=== PATIENT | female | born 1970 | race African-American/Black ===

== ENCOUNTER 2018-05-27 14:24 | Emergency (ER) | payer BC ==
[~2018-05-27] VITALS: Ht 182.9 cm; Wt 118.0 kg
[2018-05-27] MEDS ORDERED: SODIUM CHLORIDE 0.9% 1,000 ML IV ONE (14:55)
[2018-05-27] MEDS ORDERED: ONDANSETRON HCL 4MG/2ML VIAL IV STA (14:55)
[2018-05-27 16:02] LABS: BASOPHILS % 0.5 % (0.0-2.0); EOSINOPHILS % 0.3 % (0.0-5.0); HEMATOCRIT. 39.4 % (36.0-48.0); HEMOGLOBIN. 13.2 g/dL (12.0-16.0); LYMPHOCYTES % 18.9 % (20.0-50.0); MEAN CORPUSCULAR HEMOGLOBIN 29.8 pg (28.0-32.0); MEAN CORPUSCULAR VOLUME 88.9 fL (81.0-99.0); MEAN PLATELET VOLUME 9.8 fl (7.4-10.4); MONOCYTES % 6.2 % (2.0-8.0); NEUTROPHILS % 74.1 % (40.0-76.0); PLATELET 237 x1000/uL (130-400); RED BLOOD CELL COUNT 4.43 mill/uL (4.2-5.4); RED CELL DISTRIBUTION WIDTH 14.1 % (11.6-14.6)
[2018-05-27 16:08] LABS: CHLORIDE 107 mEq/L (98-107)
[2018-05-27 16:12] LABS: ETHANOL BLOOD < 10 mg/dL
[2018-05-27 16:18] LABS: HCG SCREEN POSITIVE
[2018-05-27 19:35] VITALS: BP 132/71
== END 2018-05-27 21:02 | disposition home or self-care (01) ==
LOC: ER 14:24
DX: F12.129 Cannabis abuse with intoxication, unspecified (principal)
CPT/HCPCS: 36415; 80053; 83690; 84702; 84703; 85025; 96374; 99285; G0482; J2405; J7030